=== PATIENT | male | born 1985 | race Caucasian/White ===

== ENCOUNTER 2023-07-14 15:27 | Emergency (ER) | payer OTHER, SELFPAY ==
--- NOTE | 2023-07-14 15:31 | ED.WOUNDLAC ---
HPI - Wound/Laceration General Chief Complaint: Wound/Laceration Stated Complaint: tetanus shot Time Seen by Provider: 07/14/23 15:31 Source: patient Mode of arrival: ambulatory Limitations: no limitations History of Present Illness HPI narrative: Patient is a 38-year-old male who presents with puncture wound to left palm. Patient states it happened around 7:00 a.m. with a jana nail. Patient states he irrigated wound input antibiotic ointment on. Patient states bleeding always lasted about 20 minutes. Reports tenderness around the puncture site but no drainage from wound since bleeding stopped. Denies any swelling to hand. Denies any numbness or tingling or weakness to fingers. States last tetanus shot was within the last 10 years unsure exact date. Related Data Allergies Allergy/AdvReac Type Severity Reaction Status Date / Time No Known Allergies Allergy Verified 07/14/23 15:41 Review of Systems Review of Systems: All systems reviewed & are unremarkable except as noted in HPI and below Constitutional: Constitutional: Denies body ache(s), Denies chills, Denies fatigue, Denies fever(s), Denies headache(s), Denies malaise and Denies weakness Eyes: Eyes: Denies blurry vision, Denies irritation and Denies loss of vision ENT: Denies otalgia, Denies headache(s), Denies nasal discharge, Denies sinus pain and Denies sore throat Cardiovascular: Cardiovascular: Denies chest pain, Denies irregular heart rhythm and Denies dyspnea Respiratory: Respiratory: Denies dyspnea Gastrointestinal: Gastrointestinal: Denies abdominal pain, Denies melena, Denies hematochezia, Denies diarrhea, Denies nausea and Denies vomiting Musculoskeletal: Musculoskeletal: Denies back pain, Denies myalgias and Denies arthralgias Integumentary/Breasts: Skin/Breast: Denies pruritus, Denies rash and Reports wounds Neurologic: Denies headache(s), Denies loss of vision and Denies weakness Psychiatric: Psychiatric: Reports no additional psychiatric complaints Endocrine: Endocrine: Denies fatigue PMFSH Comments At time of signature, agree with nursing past medical, surgical, social and family history. There is no relevant family history pertinent to the presenting complaint. Exam Const: General: cooperative, healthy appearing, comfortable, no acute distress and well nourished Nutritional Appearance: well nourished Orientation/consciousness: patient oriented x3 Limitations: no limitations HENMT: Head: normal to inspection, normocephalic and atraumatic Ears: hearing grossly normal bilaterally and external ears normal Face/Nose/Sinus: Normal external nose present, normal facial exam and face symmetric Face and sinus: normal facial exam and face symmetric Mouth: Yes lip normal Eyes: General: appearance normal, both eyes and all related structures Alignment and Position: alignment normal and position normal Periorbital: periorbital findings normal Eyelids: eyelids normal Pupils: Equal, round and reactive pupils present EOM: EOMs intact bilaterally Neck: Neck: normal visual inspection, full ROM and supple Chest: Chest palpation & inspection: normal inspection of the chest Resp: Effort & Inspection: normal respiratory effort and able to speak in complete sentences Auscultation: clear to auscultation bilaterally Cardio: Rate: regular rate Rhythm: regular rhythm Heart sounds: S1 normal heart sound present and S2 normal heart sound present GI: Inspection: normal to inspection Skin: General skin exam: normal color and no rashes or lesions noted Neuro: General: patient oriented x3 and moves all extremities Cranial nerves: Yes Equal, round and reactive pupils present Speech: normal speech Gait exam (Neuro): Normal gait present Extrem: General: normal to inspection, full ROM and no edema Left upper extremity: hand normal capillary refill, neuromotor exam normal Details: wrist extension normal, thumb opposition normal, thumb IP flexion normal, thumb
[2023-07-14 15:37] VITALS: BP 143/91; PULSE 89; RESP 16; TEMP 36.7; O2SAT 99
[2023-07-14] MEDS: TETANUS,DIPHTHERIA,AC PERTUSSIS ADULT (0.5 ML) BOOSTRIX IM (16:04)
== END 2023-07-14 16:17 | disposition home or self-care (01) ==
PROVIDERS: Emergency Provider Nurse Practitioner Family
DX: S61.432A Puncture wound without foreign body of left hand, initial encounter (principal); Z23 Encounter for immunization; W45.0XXA Nail entering through skin, initial encounter
CPT/HCPCS: 90471; 90715; 99213; G0463

== ENCOUNTER 2023-10-17 09:29 | Emergency (ER) | payer OTHER, SELFPAY ==
[2023-10-17 09:39] VITALS: BP 161/95; PULSE 88; RESP 16; TEMP 36.9; O2SAT 99
[2023-10-17 09:41] VITALS: BP 161/95; PULSE 88; RESP 16; TEMP 36.9; O2SAT 99
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
== END 2023-10-17 10:06 | disposition home or self-care (01) ==
PROVIDERS: Emergency Provider Nurse Practitioner
DX: R52 Pain, unspecified (principal); M79.18 Myalgia, other site
CPT/HCPCS: 99213; G0463

== ENCOUNTER 2025-03-02 16:02 | Emergency (ER) | payer OTHER, SELFPAY ==
--- NOTE | 2025-03-02 16:23 | ECG_ITS ---
Test Date: 2025-03-02 16:31:17 Measurements Intervals Gorman Rate: 86 P: 28 UT: 166 QRS: -12 QRSD: 105 T: 5 QT: 372 QTc: 446 Interpretive Statements SINUS RHYTHM INCOMPLETE RIGHT BUNDLE BRANCH BLOCK [90+ ms QRS DURATION, TERMINAL R IN V1/V2, 40+ ms S IN I/aVL/V4/V5/V6] MODERATE VOLTAGE CRITERIA FOR LVH, CONSIDER NORMAL VARIANT [MEETS CRITERIA IN ONE OF: R(aVL), S(V1), R(V5), R(V5/V6)+S(V1)] No previous ECG available for comparison Electronically Signed On 03-02-2025 18:33:42 CDT by Wilma Hairston
[2025-03-02 16:32] VITALS: BP 133/87; PULSE 88; RESP 16; TEMP 36.6; O2SAT 98
--- NOTE | 2025-03-02 16:57 | ED_ITS ---
HPI - Chest Pain General Chief Complaint: Chest Pain Stated Complaint: chest and rt side jaw discomfort Source: patient and RN notes reviewed Mode of arrival: ambulatory Limitations: no limitations History of Present Illness HPI narrative: 39-year-old male presents [facility] complaining of chest pain. Patient reports today that he sharp chest pain that was midsternal radiating into his right jaw and right ear. Patient states states the episode lasted approximately 2 hours today. Patient stated treat drink cold water he said his symptoms subsided. Patient reports he has had this sharp chest pain occur over the last month approximately 3 or 4 times. He said most the time the episodes last approximately a few minutes and then subside. Patient states sometimes the pain feels like a burning sensation it will radiate from his epigastric region all the way up to the back of his throat he reports. Patient denies any nausea, left jaw pain, left arm pain, diaphoresis, shortness of breath. Patient does have a history of high cholesterol, a daily smoker, and has hypertension. Patient denies any family history of heart disease or anyone in his family of sudden below the age of 55. Patient states he recently saw his primary care provider about this chest pain and they believe it is indigestion. Patient has not seen a packing tractor machine operator. Patient does not have chest pain currently. Related Data Home Medications Medication Instructions Recorded Confirmed Last Taken Type amlodipine 10 mg tablet mg 03/02/25 Unknown History amlodipine 5 mg tablet mg 03/02/25 Unknown History bupropion HCl 150 mg 24 hr tablet, mg PO 03/02/25 Unknown History extended release buspirone 10 mg tablet mg 03/02/25 Unknown History rosuvastatin 10 mg tablet mg 03/02/25 Unknown History sertraline 50 mg tablet mg 03/02/25 Unknown History Allergies Allergy/AdvReac Type Severity Reaction Status Date / Time No Known Allergies Allergy Verified 03/02/25 16:29 Review of Systems Review of Systems: CONSTITUTIONAL: Denies fever, chills, or sweats. EYES: Denies visual changes, redness, or discharge. ENT: Denies rhinorrhea, congestion, sore throat. Positive dry jaw pain ear pain. CARDIOVASCULAR: Positive for chest pain. Negative for palpitations, syncope, diaphoresis, or edema. RESPIRATORY: Denies cough or dyspnea. GASTROINTESTINAL: Denies abdominal pain, nausea, vomiting, or diarrhea. GENITOURINARY: Denies dysuria or hematuria. SKIN: Denies rash or itching. MUSCULOSKELETAL: Denies back pain, joint pain, or myalgia. NEUROLOGIC: Denies headache, numbness, or weakness. PSYCHIATRIC: Denies anxiety or depression. All other systems reviewed are negative, except as documented in HPI. [facility] Past Medical History Medical History (Updated 03/02/25 @ 17:23 by Andrés Abdalla APRN) High cholesterol Hypertension Tobacco abuse Comments At the time of my signature, I reviewed and agree with the nursing past medical, surgical, social, and family history. There is no relevant family history pertinent to the patient complaint. Exam Narrative: GENERAL: This is a well-nourished, well-developed adult, in no apparent distress. They are non ill-appearing, nontoxic appearing. HEAD: normocephalic, atraumatic. EYES: Sclera clear/white. Conjunctiva normal. Vision is grossly intact. Extraocular movements intact EARS: External ears normal, auditory canals clear and without drainage, TMs normal without perforation. Hearing grossly intact. NOSE: External nose normal with no obvious nasal discharge, nasal turbinates without redness, no rhinorrhea. THROAT: Mucous membranes moist, posterior pharynx clear, without erythema or swelling. Uvula midline. MOUTH: Plaque buildup present on teeth. Obvious tooth decay and missing teeth. Oropharynx clear without swelling, redness, or discharge. Tongue is normal. No swelling or tenderness under time. NECK: Neck supple, non-tender without lymphadenopathy, masses or thyromegaly. CARDIOVASCULAR: Regular rate and rhythm without murmurs, gallops, clicks, or rubs. Normal S1 and S2. RESPIRATORY: Clear to auscultation. Breath sounds equal bilaterally. No wheezes, rales, or rhonchi. Respiratory rate normal, respiratory effort nonlabored, no respiratory distress SKIN: warm, Dry, intact with no suspicious lesions or rash, good texture and turgor. NEURO: awake, alert, and oriented to person, place and time. There were no obvious focal neurologic abnormalities. EXTREMITIES: No joint tenderness, effusion, or edema noted. BACK: Nontender without deformity. No CVA tenderness. Course Course Emergency Course: Portions of this record may have been created with voice recognition software Level of Care: Express Care Visit Vital Signs Vital signs: Vital Signs Temperature 98 F 03/02/25 16:32 Pulse Rate 88 03/02/25 16:32 Respiratory Rate 16 03/02/25 16:32 Blood Pressure 133/87 03/02/25 16:32 Pulse Oximetry 98 03/02/25 16:32 Temperature 98 F 03/02/25 16:32 Pulse Rate 88 03/02/25 16:32 Respiratory Rate 16 03/02/25 16:32 Blood Pressure 133/87 03/02/25 16:32 Pulse Oximetry 98 03/02/25 16:32 Reviewed MDM - Chest Pain MDM Narrative Medical decision making narrative: Chest pain appears atypical in presentation. Patient's EKG is reassuring without any ischemic findings. Patient currently does not have any chest pain. It is possible the patient's symptoms are related to indigestion or acid reflux. [place] heart score of 1. Low suspicion for ACS. Discussed with patient through shared decision making about transfer to emergency department for further evaluation of his symptoms he is declined to go to the ER. Through share decision making patient has agreed to have close follow-up with PCP who is aware about his recent chest pains, and patient has agreed that he will go see a packing tractor machine operator outpatient for further evaluation given his risk factors by cholesterol, smoking, hypertension. Patient has the mental capacity and understanding to make informed medical decisions for himself. Patient said he was recently told he has high cholesterol started on rosuvastatin last week by his PCP. Smoking cessation was discussed with patient. Vital signs are stable. Discussed physical exam findings. Anticipatory guidance given. Strict ER return precautions discussed. Patient is appropriate for outpatient treatment and follow-up. Differential Diagnosis Differential diagnosis: Likely stable angina, atypical chest pain and other (Acid reflux) ECG Data EKG #1: ECG completion date: 03/02/25 ECG completion time: 16:31 Prior ECG tracings: not available for review EKG Interpretation: normal rate, sinus rhythm, no ectopy, no ST changes, normal QRS and no acute changes Critical Care Time Critical Care Time Critical Care Time: No Discharge Plan Discharge Clinical Impression: Atypical chest pain Patient Disposition: Home Condition: Stable Instructions: Chest Pain (ED), GERD (Gastroesophageal Reflux Disease) (ED) Additional Instructions: Please follow-up with your primary care provider in 3-5 days about her chest pain. Your chest pain is likely from indigestion or acid reflux disease. Please take the Pepcid as directed. He will be given a referral to Cardiology to follow-up with. Follow-up with them in 3-5 days. Continue take your meds as directed. Please stop smoking. If your chest pain changes, becomes constant, you develop chest pain with exertion, shortness of breath, left jaw pain, left arm pain, you become sweaty, nauseous, or any other concerns please go to the ER immediately. Patient Language: [place] Prescriptions: New famotidine [Pepcid] 20 mg tablet 20 mg PO BID 30 Days Qty: 60 0RF No Action amlodipine 5 mg tablet amlodipine 10 mg tablet buspirone 10 mg tablet sertraline 50 mg tablet rosuvastatin 10 mg tablet bupropion HCl 150 mg tablet extended release 24 hr PO Follow-up/Referrals: Tr Fagan MD [Physician] - 3 Days (chest pain) Becky,Theresa Chun APRN [Primary Care Provider] - Time of Disposition: 17:09
== END 2025-03-02 17:12 | disposition home or self-care (01) ==
PROVIDERS: PCP Nurse Practitioner
DX: R07.89 Other chest pain (principal); E78.00 Pure hypercholesterolemia, unspecified; I10 Essential (primary) hypertension; F17.200 Nicotine dependence, unspecified, uncomplicated
CPT/HCPCS: 93005; 99213; G0463